=== PATIENT | male | born 1960 | race Caucasian/White ===

== ENCOUNTER 2020-12-01 13:06 | Emergency (ER) | payer BC, OTHER ==
[2020-12-01] MEDS ORDERED: Sodium Chloride 0.9% 10 ML Syringe FLUSH PRN (13:21)
[2020-12-01] MEDS ORDERED: Diltiazem 25 MG/5 ML SDV IVPUSH ONE (13:21)
--- NOTE | 2020-12-01 14:00 | EDM.PDOC ---
ED HPI GENERAL MEDICAL PROBLEM - General Chief Complaint: Cardiovascular Problem Time Seen by Provider: 12/01/20 13:15 Source of Information: Reports: Patient History Limitations: Reports: No Limitations - History of Present Illness INITIAL COMMENTS - FREE TEXT/NARRATIVE: Patient presented to the ED because of palpitations which started this morning. There is no associated chest pain, dyspnea, dizziness. He has a history of chronic AFIB and is taking Cardizem XR 180 mg daily. - Related Data Allergies Allergy/AdvReac Type Severity Reaction Status Date / Time No Known Allergies Allergy Verified 12/01/20 13:42 Home Meds: Home Meds Apixaban [Eliquis] 2.5 mg PO BID 12/01/20 [History] Diltiazem [Dilacor XR] 180 mg PO DAILY 12/01/20 [History] Valsartan 160 mg PO DAILY 12/01/20 [History] atorvaSTATin [Lipitor] 20 mg PO BEDTIME 12/01/20 [History] ED ROS GENERAL - Review of Systems Review Of Systems: See Below Constitutional: Reports: No Symptoms HEENT: Reports: No Symptoms Respiratory: Reports: No Symptoms Cardiovascular: Reports: Palpitations Endocrine: Reports: No Symptoms GI/Abdominal: Reports: No Symptoms : Reports: No Symptoms Musculoskeletal: Reports: No Symptoms Skin: Reports: No Symptoms Neurological: Reports: No Symptoms Psychiatric: Reports: No Symptoms ED EXAM, GENERAL - Physical Exam Exam: See Below Exam Limited By: No Limitations General Appearance: Alert, No Apparent Distress Ears: Normal External Exam, Normal Canal Nose: Normal Inspection, Normal Mucosa, No Blood Throat/Mouth: Normal Inspection, Normal Lips, Normal Teeth Head: Atraumatic, Normocephalic Neck: Normal Inspection, Supple, Non-Tender, Full Range of Motion Respiratory/Chest: No Respiratory Distress, Lungs Clear, Normal Breath Sounds, No Accessory Muscle Use, Chest Non-Tender Cardiovascular: Normal Peripheral Pulses, Tachycardia, Irregularly Irregular GI/Abdominal: Normal Bowel Sounds, Soft, Non-Tender, No Organomegaly Back Exam: Normal Inspection, Full Range of Motion Extremities: Normal Inspection, Normal Range of Motion, Non-Tender Neurological: Alert, Oriented, CN II-XII Intact, Normal Cognition #1 Interpretation EKG Date: 12/01/20 Time: 13:06 Rhythm: A-Fib Rate (Beats/Min): 144 [place]: Normal P-Wave: Absent QRS: Normal ST-T: Normal QT: Normal Comparison: NA - No Prior EKG EKG Interpretation Comments: AFIB with RVR Course - Vital Signs Text/Narrative:: Lab/EKG result was reviewed and discussed with patient Cardizem 15 mg IV x1 Cardizem 10 mg IV x1 Last Recorded V/S: Last Vital Signs Temp 36.7 C 12/01/20 13:06 Pulse 154 H 12/01/20 13:06 Resp 21 H 12/01/20 13:06 BP 181/123 H 12/01/20 13:06 Pulse Ox 96 12/01/20 13:06 - Orders/Labs/Meds Orders: Active Orders 24 hr Category Date Time Status Saline Lock Insert [OM.PC] Routine Oth 12/01/20 13:21 Ordered EKG 12 Lead [EK] Routine Ther 12/01/20 13:21 Ordered Labs: Laboratory Tests 12/01/20 12/01/20 12/01/20 Range/Units 13:32 13:32 13:32 WBC 10.9 H (3.2-10.1) x10-3/uL RBC 5.13 (3.90-5.90) x10(6)uL Hgb 16.7 (12.9-17.7) g/dL Hct 48.8 (38.3-50.1) % MCV 95.3 (80.8-98.7) fL MCH 32.5 (27.0-33.3) pg MCHC 34.2 (28.7-35.3) g/dL RDW 13.8 (12.4-15.0) % Plt Count 292 (117-477) x10(3)uL MPV 8.5 (6.7-11.0) fL Neut % (Auto) 83.3 H (40.3-71.8) % Lymph % (Auto) 11.9 L (15.8-45.3) % [place] % (Auto) 4.0 L (5.5-15.2) % Eos % (Auto) 0.2 (0.1-6.8) % Baso % (Auto) 0.6 (0.3-3.8) % Neut # (Auto) 9.1 H (1.7-6.9) x10-3/uL Lymph # (Auto) 1.3 (0.5-4.5) x10-3/uL [place] # (Auto) 0.4 (0.0-1.2) x10-3/uL Eos # (Auto) 0.0 (0.0-0.6) x10-3/uL Baso # (Auto) 0.1 (0.0-0.3) x10-3/uL Sodium 142 (135-145) mmol/L Potassium 4.1 (3.5-5.3) mmol/L Chloride 107 (100-110) mmol/L Carbon Dioxide 22 (21-32) mmol/L BUN 12 (7-18) mg/dL Creatinine 0.9 (0.70-1.30) mg/dL Est Cr Clr Drug Dosing 102.75 mL/min Estimated GFR (MDRD) > 60 (>60) BUN/Creatinine Ratio 13.3 (9-20) Glucose 107 (80-116) mg/dL Calcium 8.4 L (8.6-10.2) mg/dL Total Bilirubin 0.4 (0.1-1.3) mg/dL AST 20 (5-25) IU/L ALT 31 (12-36) U/L Alkaline Phosphatase 101 (56-112) IU/L Troponin I 9.2 (4.0-60.3) pg/mL Total Protein 7.7 (6.0-8.0) g/dL Albumin 3.9 (3.5-5.2) g/dL Globulin 3.8 g/dL Albumin/Globulin Ratio 1.0 Meds: Medications Discontinued Medications Generic Name Dose Route Start Last Admin Trade Name Freq PRN Reason Stop Dose Admin Diltiazem HCl 25 mg 12/01/20 13:21 12/01/20 13:30 Diltiazem 25 Mg/5 Ml Sdv IVPUSH 12/01/20 13:22 25 mg ONETIME ONE Administration Sodium Chloride 10 ml 12/01/20 13:21 12/01/20 13:32 Sodium Chloride 0.9% 10 Ml Syringe FLUSH 10 ml ASDIRECTED PRN Administration Keep Vein Open Departure - Departure Time of Disposition: 14:20 Disposition: Home, Self-Care 01 Condition: Good Clinical Impression: Afib Instructions: Atrial Fibrillation, [id number] Referrals: PCP,Not In Area [Primary Care Provider] - Forms: ED Department Discharge Additional Instructions: Please read discharge instructions on AFIB Continue your present medications If yo feel like your heart is racing and pounding again, take 1/2 tablet of the Cardizem ER Follow up as needed Sepsis Event Note (ED) - Focused Exam Vital Signs: Vital Signs Temp Pulse Resp BP Pulse Ox 12/01/20 13:06 36.7 C 154 H 21 H 181/123 H 96 - My Orders Last 24 Hours: My Active Orders 12/01/20 13:21 Saline Lock Insert [OM.PC] Routine EKG 12 Lead [EK] Routine - Assessment/Plan Last 24 Hours: My Active Orders 12/01/20 13:21 Saline Lock Insert [OM.PC] Routine EKG 12 Lead [EK] Routine
== END 2020-12-01 14:40 | disposition home or self-care (01) ==
LOC: FB.ED 13:06
DX: I48.91 Unspecified atrial fibrillation (principal); Z79.01 Long term (current) use of anticoagulants; Z79.899 Other long term (current) drug therapy
CPT/HCPCS: 36415; 80053; 84484; 85025; 93005; 93010; 96374; 99283; 99285-25; J3490